=== PATIENT | male | born 1950 ===

== ENCOUNTER 2017-01-10 06:24 | Emergency (ER) | payer OTHER ==
[2017-01-10] MEDS ORDERED: Morphine 4 MG/ML VIAL ONE (07:24)
[2017-01-10] MEDS ORDERED: Sodium Chloride 0.9% 1,000 ML ONE (07:25)
[2017-01-10] MEDS ORDERED: Sodium Chloride 0.9% 1,000 ML IV ONE (07:30)
--- NOTE | 2017-01-10 07:34 | C.PDOC ---
History Of Present Illness Patient is a 66 y/o male that presents to the ED for evaluation of intermittent periumbilical and right sided abdominal pain for the last 4 days. Patient states that pain is now more constant which prompted him to visit ED today. Patient notes associated nausea, vomiting, and intermittent diarrhea. Otherwise , pt denies any fever, chills, back pain, dysuria, recent travel, or any other associated symptoms. Time Seen by Provider: 01/10/17 07:11 Chief Complaint (Nursing): Abdominal Pain History Per: Patient History/Exam Limitations: no limitations Onset/Duration Of Symptoms: Days (4), Intermittent Episodes Current Symptoms Are (Timing): Still Present Location Of Pain/Discomfort: Periumbilical (right sided) Radiation Of Pain To:: None Quality Of Discomfort: "Pain" Associated Symptoms: Nausea, Vomiting, Diarrhea. denies: Fever, Chills, Loss Of Appetite, Back Pain, Chest Pain, Constipation, Urinary Symptoms Exacerbating Factors: None Alleviating Factors: None Recent travel outside of the [place]: No Additional History Per: Patient Past Medical History Reviewed: Historical Data, Nursing Documentation, Vital Signs Vital Signs: Last Vital Signs Temp 98.0 F 01/10/17 11:12 Pulse 73 01/10/17 11:12 Resp 18 01/10/17 11:12 BP 133/71 01/10/17 11:12 Pulse Ox 100 01/10/17 11:21 - Medical History PMH: Hypercholesterolemia Family History: States: No Known Family Hx - Social History Hx Alcohol Use: No Hx Substance Use: No - Immunization History Hx Influenza Vaccination: Yes Hx Pneumococcal Vaccination: Yes Review Of Systems Except As Marked, All Systems Reviewed And Found Negative. Constitutional: Negative for: Fever, Chills Gastrointestinal: Positive for: Nausea, Vomiting, Abdominal Pain (periumbilical , right side), Diarrhea. Negative for: Melena, Hematochezia, Hematemesis Genitourinary: Negative for: Dysuria, Frequency, Hematuria Musculoskeletal: Negative for: Back Pain Physical Exam - Physical Exam Appears: Non-toxic, No Acute Distress Skin: Normal Color, Warm, Dry, No Rash Head: Atraumatic, Normacephalic Eye(s): bilateral: Normal Inspection, PERRL, EOMI Oral Mucosa: Moist Throat: No Erythema, No Exudate Neck: Normal ROM, Supple Chest: Symmetrical Cardiovascular: Rhythm Regular, No Friction Rub, No Murmur Respiratory: Normal Breath Sounds, No Rales, No Rhonchi, No Wheezing Gastrointestinal/Abdominal: Bowel Sounds (active), Soft, Tenderness (moderate right side, periumbilical tenderness), No Distention, No Guarding, No Rebound Back: No CVA Tenderness Extremity: Normal ROM, No Swelling Neurological/Psych: Oriented x3, Normal Speech, Normal Cognition, Normal Motor Gait: Steady ED Course And Treatment - Laboratory Results Result Diagrams: 01/10/17 07:33 01/10/17 07:56 O2 Sat by Pulse Oximetry: 100 (on RA) Pulse Ox Interpretation: Normal - CT Scan/US Abd & pelvis CT Other Rad Studies (CT/US): Read By Radiologist, Radiology Report Reviewed CT/US Interpretation: FINDINGS: LOWER THORAX: Mild bibasilar atelectasis. LIVER: Mild fatty hepatic infiltration no obvious hepatic mass or collection . No gross lesion or ductal dilatation. GALLBLADDER AND BILE DUCTS: Unremarkable. PANCREAS: Unremarkable. No mass. No ductal dilatation. SPLEEN: Unremarkable. No splenomegaly. ADRENALS: Unremarkable. KIDNEYS AND URETERS : Unremarkable. No stone or hydronephrosis. BLADDER: Mild wall thickening urinary bladder could be in part due to to incomplete distention and muscular hypertrophy. Cystitis not excluded. REPRODUCTIVE: Enlarged prostate gland measuring approximately 5.4 cm in transverse dimension. Correlation with PSA recommended. APPENDIX: Appendix measures up to 7.5 mm though this also includes intraluminal air. Wall is minimally thickened however no obvious periappendiceal inflammatory changes. These findings are equivocal for acute appendicitis no normal appendix is generally favored. Clinical correlation recommended. BOWEL: There are several minimally prominent loops of small bowel containing fluid within the right lower quadrant of the abdomen which exhibit mild wall thickening. . Findings could represent infectious or inflammatory enteritis however clinical correlation recommended. There does appear to be a few prominent lymph nodes right lower quadrant of the abdomen; rule out mesenteric adenitis. PERITONEUM: Unremarkable. No fluid collection. No free air. Tiny fat containing umbilical hernia small fat containing bilateral inguinal hernias. LYMPH NODES: Unremarkable. No enlarged lymph nodes. VASCULATURE: Unremarkable. No aortic aneurysm. BONES: No fracture or destructive lesion. Mild multilevel degenerative spondylosis of the lower thoracic and lumbar spine. OTHER FINDINGS: None. IMPRESSION: The appendix measures up to 7.5 mm in greatest diameter however this includes air within the appendix. Minimal wall thickening. Findings likely normal for this patient and at acute appendicitis not favored though not completely excluded. . Clinical correlation recommended. There are several minimally prominent rim slightly thick-walled fluid-filled loops of bowel right lower quadrant of the abdomen ; findings the could represent nonspecific -infectious or inflammatory enteritis. Clinical correlation recommended. Mild fatty hepatic infiltration. Enlarged prostate gland . Correlation with PSA recommended. Progress Note: Labs, abd & pelvis CT ordered and reviewed. Patient was treated with IV fluids, Morphine, Pepcid, Toradol, and Zofran inj. On re-evaluation patient is resting comfortably, with no acute distress. Abdomen remains soft. Medical Decision Making Medical Decision Making: CT results were discussed with the patient that this is most likely enteritis vs. appendicitis. On re-exam, the patient reports that he has no pain and feels better. Abdomen is soft, non-tender and tolerating PO well. ambulatory in the ED with steady gait. Patient was instructed to return if there any worsening of symptoms. Disposition - Disposition Referrals: [facility] [Outside] Disposition Time: 11:15 Condition: GOOD Additional Instructions: If there is any worsening pain, vomiting or fever return to the ED as soon as possible. Follow up with the medical doctor within 1-2 days without fail. Return if worsened. Prescriptions: Famotidine [Pepcid] 20 mg PO DAILY #10 tab Ondansetron ODT [Zofran ODT] 1 odt PO BID PRN #10 odt PRN Reason: Nausea/Vomiting Instructions: Enteritis (ED) - Clinical Impression Clinical Impression: Enteritis - PA / ARCHITECTURAL DRAFTER / Resident Statement MD/DO has reviewed & agrees with the documentation as recorded. - Scribe Statement The provider has reviewed the documentation as recorded by the Leticia Herman All medical record entries made by the Leticia were at my direction and personally dictated by me. I have reviewed the chart and agree that the record accurately reflects my personal performance of the history, physical exam, medical decision making, and the department course for this patient. I have also personally directed, reviewed, and agree with the discharge instructions and disposition.
[2017-01-10 07:39] LABS: BASO % 0.3 % (0.0-2.0); EOS # 0.1 K/uL (0.0-0.7); HEMATOCRIT 46.7 % (35.0-51.0); LYMPH % 19.8 % (20.0-40.0); MEAN CELL VOLUME 87.8 fL (80.0-94.0); MEAN CORPUSCULAR HEMOGLOBIN 29.1 pg (27.0-31.0); MEAN CORPUSCULAR HGB CONC 33.2 g/dL (33.0-37.0); MONO # 0.9 K/uL (0.0-0.8); MONO % 8.6 % (0.0-10.0); NRBC % 0.1 % (0.0-2.0); RED CELL DISTRIBUTION WIDTH 13.5 % (11.5-14.5); WHITE BLOOD COUNT 9.9 K/uL (4.8-10.8)
[2017-01-10 08:10] LABS: CHLORIDE 105 mmol/L (98-107)
[2017-01-10 08:10] LABS: RBC URINE < 1 /hpf (0-3); URINE BILIRUBIN NEGATIVE (NEGATIVE); URINE BLOOD NEGATIVE (NEGATIVE); URINE COLOR Yellow (YELLOW); URINE GLUCOSE (UA) 1+ mg/dL (Normal); URINE KETONE 1+ mg/dL (NEGATIVE); URINE LEUKOCYTE ESTERASE NEG Leu/uL (Negative); URINE PROTEIN NEGATIVE (NEGATIVE); URINE UROBILINOGEN NORMAL mg/dL (0.2-1.0); WBC URINE 1 /hpf (0-5)
[2017-01-10 08:12] LABS: POTASSIUM 3.7 mmol/L (3.6-5.2); SODIUM 137 mmol/L (132-148)
[2017-01-10 08:13] LABS: CARBON DIOXIDE 22 mmol/L (22-30); GFR AFRICAN-AMERICAN > 60
[2017-01-10 08:14] LABS: ALB/GLOB RATIO 1.1 (1.0-2.1); ALKALINE PHOSPHATASE 71 U/L (38-126); ALT/SGPT 25 U/L (21-72); AST/SGOT 28 U/L (17-59); BLOOD UREA NITROGEN 12 mg/dL (9-20); CALCIUM 7.5 mg/dl (8.6-10.4); GLUCOSE,RANDOM 146 mg/dL (75-110); TOTAL PROTEIN 6.7 g/dL (6.3-8.3)
[2017-01-10] MEDS ORDERED: Iodixanol 320 MG/ML 100 ML BOTTLE IV ONE (08:34)
[2017-01-10 09:26] VITALS: RESP 18
--- NOTE | 2017-01-10 11:05 | CT ---
PROCEDURE: CT Abdomen and Pelvis . HISTORY: RLQ abd pain, vomiting COMPARISON: None. TECHNIQUE: Contiguous axial images of the abdomen and pelvis following intravenous injection of approximately 100 cc Visipaque contrast material. Coronal and Sagittal reformats generated. Radiation dose: Total exam DLP = 458.58 mGy-cm. This CT exam was performed using one or more of the following dose reduction techniques: Automated exposure control, adjustment of the mA and/or kV according to patient size, and/or use of iterative reconstruction technique. FINDINGS: LOWER THORAX: Mild bibasilar atelectasis LIVER: Mild fatty hepatic infiltration no obvious hepatic mass or collection . No gross lesion or ductal dilatation. GALLBLADDER AND BILE DUCTS: Unremarkable. PANCREAS: Unremarkable. No mass. No ductal dilatation. SPLEEN: Unremarkable. No splenomegaly. ADRENALS: Unremarkable. KIDNEYS AND URETERS: Unremarkable. No stone or hydronephrosis. BLADDER: Mild wall thickening urinary bladder could be in part due to to incomplete distention and muscular hypertrophy. Cystitis not excluded REPRODUCTIVE: Enlarged prostate gland measuring approximately 5.4 cm in transverse dimension. Correlation with PSA recommended. APPENDIX: Appendix measures up to 7.5 mm though this also includes intraluminal air. Wall is minimally thickened however no obvious periappendiceal inflammatory changes. These findings are equivocal for acute appendicitis no normal appendix is generally favored. Clinical correlation recommended BOWEL: There are several minimally prominent loops of small bowel containing fluid within the right lower quadrant of the abdomen which exhibit mild wall thickening. . Findings could represent infectious or inflammatory enteritis however clinical correlation recommended. There does appear to be a few prominent lymph nodes right lower quadrant of the abdomen; rule out mesenteric adenitis PERITONEUM: Unremarkable. No fluid collection. No free air. Tiny fat containing umbilical hernia small fat containing bilateral inguinal hernias LYMPH NODES: Unremarkable. No enlarged lymph nodes. VASCULATURE: Unremarkable. No aortic aneurysm. BONES: No fracture or destructive lesion. Mild multilevel degenerative spondylosis of the lower thoracic and lumbar spine OTHER FINDINGS: None. IMPRESSION: The appendix measures up to 7.5 mm in greatest diameter however this includes air within the appendix. Minimal wall thickening. Findings likely normal for this patient and at acute appendicitis not favored though not completely excluded. . Clinical correlation recommended There are several minimally prominent rim slightly thick-walled fluid-filled loops of bowel right lower quadrant of the abdomen ; findings the could represent nonspecific -infectious or inflammatory enteritis. Clinical correlation recommended Mild fatty hepatic infiltration. Enlarged prostate gland . Correlation with PSA recommended.
[2017-01-10 11:13] VITALS: BP 133/71; PULSE 73; TEMP 98
[2017-01-10 11:19] VITALS: O2SAT 100
== END 2017-01-10 11:32 | disposition home or self-care (01) ==
LOC: C.ER 06:24
DX: K52.9 Noninfective gastroenteritis and colitis, unspecified (principal)
CPT/HCPCS: 74177; 80053; 81001; 85025; 96361; 96374; 96375; 99285; J1885; J2270; J2405; J7040; Q9967